=== PATIENT | male | born 1980 | race Two or more races ===

== ENCOUNTER 2017-06-05 21:45 | Emergency (ER) | payer OTHER ==
[~2017-06-05] VITALS: Ht 182.9 cm; Wt 90.0 kg
[2017-06-05] MEDS ORDERED: SODIUM CHLORIDE 0.9% 1,000 ML IV ONE (23:50)
[2017-06-05] MEDS ORDERED: ONDANSETRON HCL 4MG/2ML VIAL IV STA (23:50)
[2017-06-06 01:14] VITALS: BP 122/72
== END 2017-06-06 01:21 | disposition home or self-care (01) ==
LOC: ER 21:45
DX: F41.0 Panic disorder [episodic paroxysmal anxiety] (principal); F12.10 Cannabis abuse, uncomplicated
CPT/HCPCS: 99284; J7030